=== PATIENT | male | born 1990 ===

== ENCOUNTER → 2021-11-08 08:13 | Outpatient (CLI) | payer OTHER, MEDICAID, SELFPAY ==
[2021-11-08 20:11] LABS: COVID19 - ORCAS (NP or Nasal) Negative (Negative)
== END ==
PROVIDERS: PCP Family Medicine; Visit Provider Physician Assistant Medical
DX: J06.9 Acute upper respiratory infection, unspecified (principal); Z20.822 Contact with and (suspected) exposure to COVID-19
CPT/HCPCS: U0003

== ENCOUNTER 2023-05-31 18:54 | Emergency (ER) | payer OTHER, MEDICAID, SELFPAY ==
[2023-05-31 18:58] VITALS: BP 127/72; PULSE 85; RESP 16; TEMP 36.4; O2SAT 99; BMI 21.3
--- NOTE | 2023-05-31 19:30 | ED.WOUNDLAC ---
HPI - Wound/Laceration General Chief Complaint: Wound/Laceration Stated Complaint: Left thumb injury Time Seen by Provider: 05/31/23 19:21 Source: patient Mode of arrival: Ambulatory History of Present Illness HPI narrative: Otherwise healthy 32-year-old gentleman was doing dishes reached under the soapy water and cut his left hand on a broken mug. There is a 2 cm laceration on the palmar surface of the base of his thumb and a superficial abrasion over the hypothenar eminence that does not need repair. He does not recall when his last tetanus shot was. He has no other complaints Related Data Previous Rx's Medication Instructions Recorded naltrexone 50 mg tablet 50 mg PO DAILY #90 tabs 05/23/22 bupropion HCl 150 mg tablet,12 hr 150 mg PO DAILY #7 ea 07/15/22 sustained-release (Wellbutrin SR) bupropion HCl 300 mg 24 hr tablet, 300 mg PO QAM #30 tabs 07/15/22 extended release (Wellbutrin XL) cephalexin 500 mg capsule 500 mg PO QID #20 caps 04/08/23 hydroxyzine HCl 25 mg tablet 25 mg PO QID PRN antihistamine #30 04/08/23 tabs Allergies Allergy/AdvReac Type Severity Reaction Status Date / Time No Known Drug Allergies Allergy Verified 05/31/23 18:58 Review of Systems Review of Systems Narrative: Pertinent positive and negative findings as per HPI Patient History Social History Smoking Status: Current every day smoker Smoking Status: Current every day smoker Substance Use Type: does not use Exam Initial Vital Signs Initial Vital Signs: Vital Signs Temperature 97.5 F L 05/31/23 18:58 Pulse Rate 85 05/31/23 18:58 Respiratory Rate 16 05/31/23 18:58 Blood Pressure 127/72 05/31/23 18:58 Pulse Oximetry 99 05/31/23 18:58 Oxygen Delivery Method Room Air 05/31/23 18:58 General: Alert appropriate in no acute distress Respiratory: Able to speak in full sentences, no obvious respiratory distress Skin: No obvious rashes, warm and dry Neurologic: Grossly intact no obvious asymmetries or abnormalities Psych: appropriate insight and affect, cooperative Extremity: Left palm has a 4 cm very superficial laceration over the hypothenar eminence. This is cleaned and dressed. He has a 2 cm full-thickness laceration over the base of his thumb. There is no tendon involvement he is neurovascularly intact this will be sutured. Procedures Laceration Repair Left base of thumb: Time of procedure: 19:55 Site: hand Side (If applicable): left Size (cm): 2 Description: linear Depth: simple, single layer Local Anesthetic: bupivacaine 0.25% Amount of anesthesia used (mL): 2 Pre-repair: wound explored, irrigated extensively and deep structures intact Skin layer closed with: nylon Skin layer suture size: 4-0 Number of sutures: 4 Technique: simple, interrupted Course Orders Ordered: Discontinued Medications Diphtheria/Tetanus/Acell Pertussis (Tet,Diph,Pertuss(Acell),Vac/Pf 0.5 Ml Syringe) 0.5 ml IM .ONCE ONE Stop: 05/31/23 19:17 Vital Signs Vital signs: Vital Signs - 8 hr 05/31/23 18:58 Temperature 97.5 F L Pulse Rate 85 Respiratory Rate 16 Blood Pressure 127/72 Pulse Oximetry 99 Oxygen Delivery Method Room Air MDM - Wound/Laceration MDM Narrative Medical decision making narrative: CC: Laceration Complicating co-morbidities: None Data collected from: patient, Differential considered: Simple laceration, complex laceration Exam documented above, pertinent findings include: Very minor laceration over the hypothenar eminence. Full-thickness laceration repaired with 4-0 nylon suture, uncomplicated Treatments: Laceration repair, Tdap Discussion: Uncomplicated laceration to his left hand. Sutured, reviewed signs and symptoms of hand infections and deeper tissue infections. At this point there is no indication for antibiotics. Sutures will need to be removed on or about June 07. He is safe for discharge Discharge Plan Departure Patient Disposition: Home Clinical Impression: Laceration Instructions: DI for Laceration Repair, Tetanus, Diphtheria, Pertussis (Tdap) Vaccine Activity Restrictions/Additional Instructions: Thank you for coming in today The cut at the base of your thumb does not involve any tendons. The forced stitches that are in their will need to come out in about a week. If you are noticing increasing pain, redness, swelling, drainage you do need to have somebody take a look at it to make sure that it is not getting infected. If you find that you are getting worse or develop any new symptoms, please feel free to return to the emergency department for further evaluation. Prescriptions: No Action naltrexone 50 mg tablet 50 mg PO DAILY Qty: 90 3RF bupropion HCl [Wellbutrin SR] 150 mg tablet sustained-release 12 hr 150 mg PO DAILY Qty: 7 0RF Rx Instructions: Use to taper into full dose for first 4 days bupropion HCl [Wellbutrin XL] 300 mg tablet extended release 24 hr 300 mg PO QAM Qty: 30 2RF cephalexin 500 mg capsule 500 mg PO QID Qty: 20 0RF hydroxyzine HCl 25 mg tablet 25 mg PO QID PRN (Reason: antihistamine) Qty: 30 0RF Referrals: Ana Enriquez PA-C [Primary Care Provider] - Stand Alone Forms: Patient Portal/API
[2023-05-31] MEDS: TET,DIPH,PERTUSS(ACELL),VAC/PF 0.5 ML SYRINGE IM (19:59)
== END 2023-05-31 20:04 | disposition home or self-care (01) ==
PROVIDERS: Emergency Provider Emergency Medicine; PCP Physician Assistant
DX: S61.412A Laceration without foreign body of left hand, initial encounter (principal); W25.XXXA Contact with sharp glass, initial encounter; Z23 Encounter for immunization
CPT/HCPCS: 12001; 90471; 99283; 90715